=== PATIENT | female | born 1940 | race Caucasian/White ===

== ENCOUNTER 2021-02-25 13:35 | Emergency (ER) | payer OTHER, BC, SELFPAY ==
[~2021-02-25] VITALS: Ht 152.4 cm; Wt 49.9 kg
[2021-02-25 13:35] VITALS: BP_SYST 167
--- NOTE | 2021-02-25 13:35 | NUR ---
BROUGHT IN BY [facility] FROM [facility], PLACED IN BED #6 AND TRIAGED. REPORT GIVEN TO NOA
--- NOTE | 2021-02-25 13:45 | NUR ---
Pt bib [facility] medical transport from [facility] via [facility] for medical clearance to go to [facility] for aggression towards staff. . Pt has no complaints at this time. Pt is calm and cooperative. Pt is AAOX3 and is able to follow commands. Breathing is even and unlabored.
--- NOTE | 2021-02-25 13:48 | NUR ---
Covid and MRSA swab collected and sent to lab.
--- NOTE | 2021-02-25 14:08 | NUR ---
Urine collected and sent to lab.
[2021-02-25 14:27] LABS: BILIRUBIN,URINE NEGATIVE (NEGATIVE); BLOOD, URINE NEGATIVE (NEGATIVE); CLARITY/URINE CLEAR (CLEAR); COLOR,URINE YELLOW (YELLOW); GLUCOSE,URINE NEGATIVE (NEGATIVE); KETONES,URINE NEGATIVE (NEGATIVE); LEUKOCYTE ESTERASE ,URINE 1+ (NEGATIVE); NITRITE, URINE NEGATIVE (NEGATIVE); PROTEIN URINE NEGATIVE (NEGATIVE); UROBILINOGEN,URINE 0.2 (0.2-1.0)
--- NOTE | 2021-02-25 14:27 | NUR ---
ER at bedside examining patient.
--- NOTE | 2021-02-25 14:27 | NUR ---
Lab at bedside.
[2021-02-25 14:49] LABS: BACTERIA,URINE FEW /HPF (None Seen); RBC,URINE 0-3 /HPF (0-3)
[2021-02-25 14:50] LABS: MUCUS,URINE None Seen /LPF (None Seen)
[2021-02-25 14:55] LABS: BARBITURATE, URINE NEGATIVE (NEG <=200); BENZODIAZEPINE, URINE NEGATIVE (NEG <=150); CANNABINOID, URINE NEGATIVE (NEG <=50); COCAINE, URINE NEGATIVE (NEG <=150); METHAMPHETAMINES SCREEN,URINE NEGATIVE (NEG <=500); OPIATE, URINE NEGATIVE (NEG <=100); PHENCYCLIDINE SCREEN,URINE NEGATIVE (NEG <=25); UR TRICYCLIC ANTIDEPRESSANTS NEGATIVE (NEG <=300); URINE AMPHETAMINE NEGATIVE (NEG <=500); URINE METHADONE NEGATIVE (NEG <=200); URINE OXYCODONE SCREEN NEGATIVE (NEG <=100); URINE PROPOXYPHENE SCREEN NEGATIVE (NEG <=300)
[2021-02-25 15:04] LABS: ANION GAP 9 (5-15); CALCIUM 8.9 mg/dL (8.4-11.0); CHLORIDE 101 mmol/L (98-107); CREATININE 0.52 mg/dL (0.55-1.30); GLUCOSE 86 mg/dL (70-99); POTASSIUM 4.1 mmol/L (3.5-5.1); SODIUM SERUM 139 mmol/L (136-145); UREA NITROGEN, BLOOD 14 mg/dL (8-21)
[2021-02-25 15:10] LABS: ACETAMINOPHEN < 1 ug/mL (1-30); ALANINE AMINOTRANSFERASE 17 U/L (12-78); ALBUMIN 3.1 g/dL (3.4-4.8); ALCOHOL, BLOOD < 3 mg/dL (<10); ASPARTATE AMINOTRANSFERASE 16 U/L (10-37); TOTAL BILIRUBIN 0.2 mg/dL (0.0-1.0)
[2021-02-25 15:13] LABS: CHOLESTEROL 195 mg/dL (<200); HDL CHOLESTEROL 75 mg/dL (>55); LDL CHOLESTEROL 107 mg/dL (<100); TRIGLYCERIDES 68 mg/dL (30-150)
[2021-02-25 15:19] LABS: BASOPHILS % (AUTO) 0.7 % (0.0-2.0); EOSINOPHILS # (AUTO) 0.4 K/uL (0.0-0.4); EOSINOPHILS % (AUTO) 5.5 % (0.0-4.0); HEMATOCRIT 37.8 % (36-48); HEMOGLOBIN 12.5 g/dL (12.0-16.0); LYMPHOCYTES # (AUTO) 2.2 K/uL (1.0-5.5); LYMPHOCYTES % (AUTO) 31.7 % (20.5-51.5); MEAN CORPUSCULAR HEMOGLOBIN 30 pg (27-31); MEAN CORPUSCULAR HGB CONC 33 % (32-36); MEAN CORPUSCULAR VOLUME 89 fL (79.0-98.0); MONOCYTES # (AUTO) 0.6 K/uL (0.0-1.0); MONOCYTES % (AUTO) 9.3 % (1.7-9.3); NEUTROPHILS # (AUTO) 3.6 K/uL (1.8-7.7); NEUTROPHILS % (AUTO) 52.8 % (40.0-70.0); PLATELET COUNT (AUTO) 266 K/uL (130-430); RED BLOOD CELL COUNT(AUTO) 4.23 MIL/uL (4.2-6.2); RED CELL DISTRIBUTION WIDTH 15.7 % (9.0-15.0); WHITE BLOOD COUNT (AUTO) 6.8 K/uL (4.8-10.8)
--- NOTE | 2021-02-25 15:42 | NUR ---
Pt stanidng in door way claiming her nephew is here to pick her up and is wanting to leave. Pt given water to drink.
[2021-02-25] MEDS ORDERED: CIPROFLOXACIN HCL 500 MG TABLET PO ONE (15:45)
--- NOTE | 2021-02-25 16:04 | NUR ---
Pt states she can talk to people without other people knowing in her head. Pt still insisting her nephew is outside waiting for her. Pt reoriented and is standing infront of TV watching the news.
[2021-02-25] MEDS ORDERED: LORazepam 1 MG TABLET PO ONE (16:30)
--- NOTE | 2021-02-25 18:54 | NUR ---
Pt standing in door way. No distress noted at this time.
--- NOTE | 2021-02-25 19:26 | NUR ---
Care endorsed to Radha ROGERS.
[2021-02-25] MEDS ORDERED: DIPHENHYDRAMINE HCL 25 MG CAPSULE PO ONE (19:30)
[2021-02-25] MEDS ORDERED: cloNIDine HCL 0.1 MG TABLET PO ONE ×2 (19:45→20:45)
[2021-02-25] MEDS ORDERED: cloNIDine HCL 0.1 MG TABLET ONE (19:46)
--- NOTE | 2021-02-25 22:45 | NUR ---
PATIENT IS SLEEPING IN BED. VSS. WAITING FOR BLS TRANSPORT. WILL CONTINUE TO MONITOR.
--- NOTE | 2021-02-26 00:05 | NUR ---
PATIENT IS SLEEPING IN BED. VSS. WAITING FOR BLS TRANSPORT. WILL CONTINUE TO MONITOR.
[2021-02-26 01:45] VITALS: BP_SYST 97
--- NOTE | 2021-02-26 01:45 | NUR ---
Patient to be transferred to [facility]. Is being transferred due to higher level of care. Receiving facility has accepting physician and available space. ER physician has signed transfer form. Patient or responsible democrat has agreed to transfer and signed form. Patient belongings will be sent with patient. Copy of nursing notes, lab reports, EKG, Physicians Orders and X-rays to be sent with patient. [facility] ambulance service has been called for transfer.
--- NOTE | 2021-02-26 02:10 | NUR ---
CALLED LAMINE STONER TO GIVE REPORT, TECH STATED THE NURSE IS WITH THE PATIENT AND WILL CALL ER BACK WHEN AVAILABLE.
== END 2021-02-26 01:45 ==
LOC: SED 13:35
DX: R45.6 Violent behavior (principal); I10 Essential (primary) hypertension; F31.9 Bipolar disorder, unspecified; Z20.822 Contact with and (suspected) exposure to COVID-19; Z79.899 Other long term (current) drug therapy
CPT/HCPCS: 36415; 80053; 80061; 80307; 81000; 83036; 85025; 87081; 87086; 87426; 93005; 99285; G0480; Q0163; G0481; G0482

== ENCOUNTER 2021-12-14 09:51 | Inpatient (IN) | payer OTHER, BC ==
[~2021-12-14] VITALS: Ht 152.4 cm; Wt 65.8 kg
[2021-12-14 09:54] VITALS: BP_SYST 155
--- NOTE | 2021-12-14 09:58 | NUR ---
Placed in room 5 . Placed on cardiac nurse practitioner, blood pressure machine and pulse oximeter. To gown for exam. Side rails up. Report given to SUE LOBATO.
--- NOTE | 2021-12-14 10:00 | NUR ---
RECEIVED PT FROM SUE COOPER. PT AAOX2-3. SLOW TO SPEAK. PT HAS C/O R SHOULDER PAIN, PT FROM [employer], EMPLOYEES STATE THAT PT IS ALTERED FROM BASE LINE. RESP E/U. SKIN INTACT, NO REPORTS OF PT HAVING SUSTAINED FALL, PT DENIES FALLING. NO S/S OF TRAUMA. SKIN INTACT, NO EDEMA, CAP REFILL < 3. SIDERAILS UP X2.
[2021-12-14] MEDS ORDERED: ARIP5TAB10 PO (10:05)
[2021-12-14] MEDS ORDERED: TYLL650 PO (10:05)
[2021-12-14] MEDS ORDERED: SERT-436 PO (10:05)
[2021-12-14] MEDS ORDERED: LIP20 PO (10:05)
[2021-12-14] MEDS ORDERED: ASPI-1393 PO (10:05)
[2021-12-14] MEDS ORDERED: LISI20TA30 PO (10:05)
[2021-12-14] MEDS ORDERED: SULF1TAB48 PO (10:05)
[2021-12-14] MEDS ORDERED: LEVO100T PO (10:05)
[2021-12-14] MEDS ORDERED: DOCU-144 PO (10:05)
--- NOTE | 2021-12-14 10:05 | NUR ---
Medication reconciliation completed with information provided by [facility]. Any prior medication reconciliation on file was reviewed and corrected.
--- NOTE | 2021-12-14 10:26 | NUR ---
automotive drivability technician at bedside.
--- NOTE | 2021-12-14 10:27 | NUR ---
LABS OBTAINED, CXR COMPLETED.
--- NOTE | 2021-12-14 10:30 | NUR ---
ER at bedside examining patient.
[2021-12-14 10:45] LABS: BASOPHILS % (AUTO) 0.5 % (0.0-2.0); HEMATOCRIT 38.7 % (36-48); LYMPHOCYTES % (AUTO) 10.7 % (20.5-51.5); MEAN CORPUSCULAR HEMOGLOBIN 29 pg (27-31); MEAN CORPUSCULAR HGB CONC 34 % (32-36); MEAN CORPUSCULAR VOLUME 87 fL (79.0-98.0); MONOCYTES # (AUTO) 0.8 K/uL (0.0-1.0); MONOCYTES % (AUTO) 8.2 % (1.7-9.3); NEUTROPHILS # (AUTO) 7.8 K/uL (1.8-7.7); NEUTROPHILS % (AUTO) 80.6 % (40.0-70.0); PLATELET COUNT (AUTO) 278 K/uL (130-430); RED BLOOD CELL COUNT(AUTO) 4.46 MIL/uL (4.2-6.2); RED CELL DISTRIBUTION WIDTH 15.9 % (9.0-15.0); WHITE BLOOD COUNT (AUTO) 9.7 K/uL (4.8-10.8)
--- NOTE | 2021-12-14 11:12 | NUR ---
EKG performed at by Danielle ROGERS. Physician given copy of EKG for review.
--- NOTE | 2021-12-14 11:38 | NUR ---
URINE OBTAINED, IV CATH 22G PLACE TO LFA. SITE WNL.
[2021-12-14 11:39] LABS: BILIRUBIN,URINE NEGATIVE (NEGATIVE); BLOOD, URINE 1+ (NEGATIVE); CLARITY/URINE CLEAR (CLEAR); COLOR,URINE YELLOW (YELLOW); GLUCOSE,URINE NEGATIVE (NEGATIVE); KETONES,URINE 1+ (NEGATIVE); LEUKOCYTE ESTERASE ,URINE 1+ (NEGATIVE); NITRITE, URINE NEGATIVE (NEGATIVE); PROTEIN URINE TRACE (NEGATIVE)
[2021-12-14 12:01] LABS: BACTERIA,URINE MODERATE /HPF (None Seen); MUCUS,URINE 1+ /LPF (None Seen)
[2021-12-14 12:25] LABS: ALANINE AMINOTRANSFERASE 13 U/L (12-78); ANION GAP 12 (5-15); ASPARTATE AMINOTRANSFERASE 21 U/L (10-37); CHLORIDE 99 mmol/L (98-107); CREATININE 0.56 mg/dL (0.55-1.30); GLUCOSE 135 mg/dL (70-99); SODIUM SERUM 134 mmol/L (136-145); TOTAL BILIRUBIN 0.6 mg/dL (0.0-1.0); UREA NITROGEN, BLOOD 18 mg/dL (8-21)
[2021-12-14] MEDS ORDERED: cefTRIAXone 1 GM IVPB PREMIX 50 ML IV ONE (12:45)
--- NOTE | 2021-12-14 13:04 | NUR ---
SECOND LABS OBTAINED.
--- NOTE | 2021-12-14 13:23 | NUR ---
Covid swab done and sent to lab.
--- NOTE | 2021-12-14 14:00 | NUR ---
PAGED DR. GONCALVES TO REPORT SBP RUNNING IN THE 170-180S. AWAITING CALL BACK
[2021-12-14] MEDS: POTASSIUM CHLORIDE 20 MEQ in D5NS 1,000 ML IV SCH (14:01)
--- NOTE | 2021-12-14 14:33 | NUR ---
Admit bed requested Patient will be admitted to care of . Admitted to MS unit. Diagnosis UTI Inpatient (Yes or No) YES Observation (Yes or No) NO Orientation concerns or request close to nursing station (Yes or No) NO Covid Status NEGATIVE On vent or bipap NO Isolation requirements NO Needs a sitter NO From Home (Yes or if No enter name of facility) [facility] Requires Dialysis (Yes or No) NO Med Rec Completed (Yes of No) YES
[2021-12-14] MEDS ORDERED: lisinopriL 20 MG TABLET PO ONE (15:15)
--- NOTE | 2021-12-14 15:17 | NUR ---
REPORTED TO DR. GONCALVES PT'S SBP TRENDING AT 170-180S. RECEIVED ORDER FOR LISINOPRIL 20MG X1 NOW, LISINOPRIL 20 PO BID, HYDRALAZINE 10MG IVP Q 4 HOURS PRN FOR SBP > 160MMHG.
[2021-12-14] MEDS: hydrALAZINE HCL 20 MG/ML VIAL IVP PRN (15:43)
--- NOTE | 2021-12-14 15:43 | NUR ---
HYDRALAZINE 10MG IVP GIVEN OVER 5 MINUTES FOR SBP 168. LISINOPRIL PO X1 GIVEN.
--- NOTE | 2021-12-14 16:10 | NUR ---
Patient will be admitted to care of SUE BENAVIDES. Admitted to MST unit. Will go to [id number]. Belongings list completed. Complete and up to date summary report printed. SBAR report to be given at bedside with opportunity for questions.
--- NOTE | 2021-12-14 16:20 | NUR ---
ADMISSION: PATIENT ARRIVED FROM ER TO ROOM 132C. PATIENT IS AAOX1 TO PERSON. PATIENT NOTED TO BE PARANOID, WITHDRAWN, AND FLAT AFFECT. DOES NOT RESPONSE TO QUESTION WHEN ASKED. PATIENT WILL ONLY RESPONSE IN SIMPLE WORDS LIKE "YES" OR "NO" WITH CLEAR SPEECH. NO PAIN OR DISTRESS NOTED. EXPLAINED POC TO PATIENT. BED IN LOW AND LOCK POSITION. BED ALARM ON. CALL LIGHT WITHIN REACH. STABLE AT THIS TIME.
[2021-12-14 16:40] VITALS: BP_SYST 136
[2021-12-14 17:34] VITALS: BP_SYST 136
--- NOTE | 2021-12-14 18:45 | NUR ---
CLOSING NOTES: PATIENT IS RESTING IN BED QUIETLY. NO DISTRESS OR PAIN NOTED AT THIS TIME. PATIENT REFUSED TO EAT. NOTED TO BE PARANOID, WITHDRAWN, AND FLAT AFFECT. PATIENT DOES NOT LIKE TO TALK OR RESPONSE WHEN BEING ASK. STABLE CONDITION AT THIS TIME.
[2021-12-14 20:00] VITALS: BP_SYST 138
[2021-12-14] MEDS ORDERED: lisinopriL 20 MG TABLET PO SCH (21:00)
[2021-12-14] MEDS: DOCUSATE SODIUM 100 MG CAPSULE PO SCH (21:15)
[2021-12-14] MEDS: lisinopriL 20 MG TABLET PO SCH (21:16)
[2021-12-14] MEDS: ATORVASTATIN 20 MG TABLET PO SCH (21:16)
[2021-12-14] MEDS: ENOXAPARIN SODIUM 40 MG/0.4 ML SYRINGE SUBCUT SCH (21:16)
[2021-12-15 00:53] VITALS: BP_SYST 141
[2021-12-15] MEDS: POTASSIUM CHLORIDE 20 MEQ in D5NS 1,000 ML IV SCH ×2 (02:35→17:38)
--- NOTE | 2021-12-15 07:30 | NUR ---
OPENING NOTES: PATIENT IS RESTING IN BED QUIETLY. A/A/0X1 TO PERSON ONLY W/ EPISODE OF CONFUSION AND FORGETFULNESS. NOTED TO BE STAND OFF, WITHDRAWN, AND FLAT AFFECT. ABLE TO TURN SELF IN BED. EXPLAINED POC TO PATIENT BUT DOES NOT SEEMS TO UNDERSTAND WHAT IS BEING SAID. NO DISTRESS OR PAIN NOTED AT THIS TIME. CALL LIGHT WITH REACH. STABLE CONDITION AT THIS TIME.
[2021-12-15 08:00] VITALS: BP_SYST 149
[2021-12-15] MEDS: ARIPiprazole 5 MG TAB PO SCH (08:26)
[2021-12-15] MEDS: SERTRALINE HCL 50 MG TABLET PO SCH (08:26)
[2021-12-15] MEDS: LEVOTHYROXINE SODIUM 0.1 MG TABLET PO SCH (08:26)
[2021-12-15] MEDS: DOCUSATE SODIUM 100 MG CAPSULE PO SCH ×2 (08:26→20:45)
[2021-12-15] MEDS: ASPIRIN 81 MG TABLET(ECOTRIN) PO SCH (08:26)
[2021-12-15] MEDS: lisinopriL 20 MG TABLET PO SCH ×2 (08:27→20:45)
[2021-12-15] MEDS: cefTRIAXone 1 GM in D5W 50 ML IV SCH (08:29)
[2021-12-15 12:00] VITALS: BP_SYST 143
[2021-12-15 16:25] VITALS: BP_SYST 145
--- NOTE | 2021-12-15 18:32 | NUR ---
CLOSING NOTES: PATIENT IS RESTING IN BED QUIETLY. NO DISTRESS OR PAIN NOTED AT THIS TIME. NOTED TO BE PARANOID, WITHDRAWN, AND FLAT AFFECT. PATIENT DOES NOT LIKE TO TALK OR RESPONSE WHEN BEING ASK. STABLE CONDITION AT THIS TIME.
[2021-12-15 20:00] VITALS: BP_SYST 176
[2021-12-15] MEDS: ATORVASTATIN 20 MG TABLET PO SCH (20:45)
[2021-12-15] MEDS: ENOXAPARIN SODIUM 40 MG/0.4 ML SYRINGE SUBCUT SCH (20:45)
[2021-12-16] VITALS: BP_SYST 156
[2021-12-16] MEDS: POTASSIUM CHLORIDE 20 MEQ in D5NS 1,000 ML IV SCH ×2 (04:55→19:30)
[2021-12-16] MEDS: LEVOTHYROXINE SODIUM 0.1 MG TABLET PO SCH (06:07)
[2021-12-16 08:00] VITALS: BP_SYST 182
[2021-12-16] MEDS: lisinopriL 20 MG TABLET PO SCH ×2 (09:34→21:32)
[2021-12-16] MEDS: SERTRALINE HCL 50 MG TABLET PO SCH (09:34)
[2021-12-16] MEDS: DOCUSATE SODIUM 100 MG CAPSULE PO SCH ×2 (09:34→21:32)
[2021-12-16] MEDS: ARIPiprazole 5 MG TAB PO SCH (09:35)
[2021-12-16] MEDS: ASPIRIN 81 MG TABLET(ECOTRIN) PO SCH (09:35)
[2021-12-16] MEDS: cefTRIAXone 1 GM in D5W 50 ML IV SCH (09:36)
[2021-12-16 12:00] VITALS: BP_SYST 168
[2021-12-16 16:00] VITALS: BP_SYST 168
--- NOTE | 2021-12-16 19:20 | NUR ---
PM OPENING NOTES HAND-OFF REPORT RECEIVED FROM HOWARD ROBERTS FOR CONTINUITY OF CARE. REPORTED "LATE ORDER" FOR DISCHARGE RIGHT AT SHIFT CHANGE. WILL REFER TO TRACTOR CRANE ENGINEER TOMORROW FOR DISCHARGE FOLLOW-THRU..PT RECEIVED AWAKE IN BED. C/O RIGHT SHOULDER PAIN 10/10. PT AFFECT EXTREMELY FLAT. I DID ASK HER IF SHE EVER SMILED. UPON SMILING AT HER SHE SMILED BACK.
[2021-12-16 20:00] VITALS: BP_SYST 171
--- NOTE | 2021-12-16 21:21 | NUR ---
TYLENOL 650 MG FOR R SHOULDER PAIN. SEE E MAR
[2021-12-16] MEDS: ACETAMINOPHEN 650 MG/20.3 ML UDC PO PRN (21:31)
[2021-12-16] MEDS: ATORVASTATIN 20 MG TABLET PO SCH (21:32)
[2021-12-16] MEDS: ENOXAPARIN SODIUM 40 MG/0.4 ML SYRINGE SUBCUT SCH (21:33)
[2021-12-17] VITALS (7 sets, daily range): BP systolic 140–142
--- NOTE | 2021-12-17 04:13 | NUR ---
TYLENOL 650 MG GIVEN FOR R SHOULDER PAIN 09/20. SCANNED AND DID NOT SHOW ON EMAR. SPECIAL NOTE PLACED IN E-MAR AT THIS TIME.
--- NOTE | 2021-12-17 05:15 | NUR ---
PAIN MED EFFECTIVE PAIN 2/10 UPON REASSESSMENT
[2021-12-17] MEDS: LEVOTHYROXINE SODIUM 0.1 MG TABLET PO SCH (07:00)
--- NOTE | 2021-12-17 07:30 | NUR ---
PM CLOSING NOTES HAND-OFF REPORT TO A.M NURSE FOR CONTINUITY OF CARE. PT RESTING IN BED. DOES NOT APPEAR IN DISTRESS. VSS THRU NIGHT. FACILITY SPECIALIST TO FOLLOW-THRU WITH D/C. RELINQUISHING CARE OF PT AT THIS TIME.
[2021-12-17] MEDS: POTASSIUM CHLORIDE 20 MEQ in D5NS 1,000 ML IV SCH ×2 (08:20→19:56)
[2021-12-17] MEDS: DOCUSATE SODIUM 100 MG CAPSULE PO SCH ×2 (08:47→21:00)
[2021-12-17] MEDS: ARIPiprazole 5 MG TAB PO SCH (08:47)
[2021-12-17] MEDS: cefTRIAXone 1 GM in D5W 50 ML IV SCH (08:48)
[2021-12-17] MEDS: lisinopriL 20 MG TABLET PO SCH ×2 (08:48→22:03)
[2021-12-17] MEDS: ASPIRIN 81 MG TABLET(ECOTRIN) PO SCH (08:48)
[2021-12-17] MEDS: SERTRALINE HCL 50 MG TABLET PO SCH (08:55)
[2021-12-17] MEDS: ACETAMINOPHEN 650 MG/20.3 ML UDC PO PRN (11:20)
--- NOTE | 2021-12-17 17:34 | NUR ---
PATIENT DAUGHTER BEAU, DOES NOT WANT THE PATIENT TO BE TRANSPORTED TO [facility]. DAUGHTER IS WORRIED PATIENT CANNOT WALK BY HERSELF WITH THE WALKER AND WILL CAUSE INJURY. PAGED MD. GONCALVES. PENDING RESPONSE.
--- NOTE | 2021-12-17 18:44 | NUR ---
PATIENT COULD NOT WALK BY HERSELF WITH THE WALKER. PATIENT TENDS TO FALL BACK IF NOT HELD BY A PERSOM. SHE REFUSED TO EAT THE DINNER. PATIENT'S DAUGHTER REFUSED TO TAKE THE PATIENT TO THE [facility]IVE LIVING DUE TO POSSIBLE INJURY. PATIENT BACK ON THE BED. IV OUT. STABLE VS. CRISS BARRAZA REGARDING PATIENT'S DAUGHTER REFUSED TO TAKE THE PATIENT BACK TO THE [facility] LIVING. PENDING RESPONSE.
[2021-12-17] MEDS: ATORVASTATIN 20 MG TABLET PO SCH (21:57)
[2021-12-17] MEDS: ENOXAPARIN SODIUM 40 MG/0.4 ML SYRINGE SUBCUT SCH (21:58)
[2021-12-18 00:15] VITALS: BP_SYST 159
[2021-12-18] MEDS: LEVOTHYROXINE SODIUM 0.1 MG TABLET PO SCH (06:27)
--- NOTE | 2021-12-18 07:19 | NUR ---
CLOSING NOTE PT IS LYING ON HER BACK WITH EYES CLOSED. NO SIGNS OF DISTRESS NOTED AT THIS TIME. BED IS IN LOWEST POSITION WITH FALL AND SAFETY PRECAUTIONS IN PLACE. CALL LIGHT IS WITHIN REACH. ALL NEEDS MET AT THIS TIME
[2021-12-18 08:00] VITALS: BP_SYST 186
--- NOTE | 2021-12-18 08:00 | NUR ---
INITIAL NOTES PATIENT IS AOX3. PATIENT IN BED, RESTING, EYES OPEN. NO S/S OF DISTRESS. NO SOB. DENIES ANY PAIN. BREATHING IS EVEN AND NON LABORED, ON ROOM AIR. VITAL SIGNS OBTAINED DOCUMENTED. SAFETY PRECAUTIONS IN PLACE AND CALL LIGHT WITHIN REACH.
[2021-12-18] MEDS: ASPIRIN 81 MG TABLET(ECOTRIN) PO SCH (08:40)
[2021-12-18] MEDS: DOCUSATE SODIUM 100 MG CAPSULE PO SCH ×2 (08:41→20:30)
[2021-12-18] MEDS: ARIPiprazole 5 MG TAB PO SCH (08:41)
[2021-12-18] MEDS: SERTRALINE HCL 50 MG TABLET PO SCH (08:41)
[2021-12-18] MEDS: lisinopriL 20 MG TABLET PO SCH ×2 (08:41→20:31)
[2021-12-18] MEDS: cefTRIAXone 1 GM in D5W 50 ML IV SCH (11:19)
[2021-12-18] MEDS: POTASSIUM CHLORIDE 20 MEQ in D5NS 1,000 ML IV SCH ×2 (11:20→23:45)
[2021-12-18 12:00] VITALS: BP_SYST 169
--- NOTE | 2021-12-18 12:00 | NUR ---
NOTES ASSISTED PATIENT TO RESTROOM, TOLERATED WALKING TO RESTROOM WELL, WITH WALKER. WHEN SHE WAS TO WALK BACK TO BED, PATIENT GAIT WAS GETTING UNSTEADY, WEAK, AND LEANING MORE TO RIGHT SIDE. PATIENT RETURNED TO BED SAFELY, NO S/S OF DISTRESS NOTED. PATIENT IS NOW EATING LUNCH. PATIENT AWARE TO CALL FOR ASSISTANCE WHEN NEEDED. SAFETY PRECAUTIONS IN PLACE AND CALL LIGHT WITHIN REACH.
[2021-12-18] MEDS: hydrALAZINE HCL 20 MG/ML VIAL IVP PRN ×2 (12:56→23:46)
[2021-12-18 16:00] VITALS: BP_SYST 141
--- NOTE | 2021-12-18 16:00 | NUR ---
NOTES PATIENT RESTING IN BED, EYES CLOSED. NO FACIAL GRIMACE NOTED. NO S/S OF DISTRESS. BREATHING IS EVEN AND NONLABORED. SAFETY PRECAUTIONS IN PLACE AND CALL LIGHT WITHIN REACH.
--- NOTE | 2021-12-18 18:35 | NUR ---
CLOSING NOTES. PATIENT IN BED, HOB ELEVATED EATING DINNER. NO S/S OF DISTRESS NOTED. DENIES PAIN. NO SOB. BREATHING IS EVEN AND NONLABORED. PATIENT AWARE TO CALL FOR ASSISTANCE. ALL NEEDS MET. SAFETY PRECAUTIONS IN PLACE AND CALL LIGHT WITHIN REACH. WILL ENDORSE CARE TO INCOMING NURSE.
[2021-12-18 19:00] VITALS: BP_SYST 168
--- NOTE | 2021-12-18 19:15 | NUR ---
change of shift.pt.presents quiescent affect;calm,resting.pt.presents iv access intact;patent location;lt.forearm.pt.presents loc;confused. i have oriented the pt.to the date,time,location.pt.presents bedrest activity status.general status stable.respiratory status stable;unlabored@room air.call light/telephone w/in access of the pt.
[2021-12-18 20:00] VITALS: BP_SYST 168
--- NOTE | 2021-12-18 20:00 | NUR ---
pt.assessed.v/s assessed values note b/p elevated.to review the e-mar med list.r/e: b/p medications.no c/o pain,nausea. iv access intact;patent.pt.assessed for cleanliness.pt.repositioned.pt.apprised that snacks/beverages are available w/in the shift.no requests posited@this hour.call light/telephone fidelia taylor.
[2021-12-18] MEDS: ATORVASTATIN 20 MG TABLET PO SCH (20:30)
[2021-12-18] MEDS: ENOXAPARIN SODIUM 40 MG/0.4 ML SYRINGE SUBCUT SCH (20:31)
--- NOTE | 2021-12-18 21:00 | NUR ---
2100p medications administered.pt.capable to ingest the po medications w/out difficulty.no c/o pain,nausea.call light/ telephone placed w/in access of the pt.
--- NOTE | 2021-12-18 22:20 | NUR ---
pt.assessed.pt.requested assistance to the restroom.pt.assisted w walker.pt.presented compromised gait.to continue w bedpan.pt.presented fall risk;high.no c/o pain,nausea.no requests posited@this hour.pt.repositioned.call light/telephone placed w/in access of the pt.
[2021-12-19] VITALS (7 sets, daily range): BP systolic 132–165
--- NOTE | 2021-12-19 | NUR ---
pt.assessed.v/s assessed values note b/p presents elevated.status.vasotec:10mg ivp administered.per prn protocol. no c/o pain.nausea.no requests posited@this hour.pt.assessed for cleanliness.pt.repositioned.call light/telephone placed w/in access of the pt.
--- NOTE | 2021-12-19 02:00 | NUR ---
pt.assessed.pt.presents quiescent affect;calm,somnolent.per flacc pain mgx pt.absent facial grimaces/body posturing.pt. assessed for cleanliness. pt.repositioned.iv access intact;patent iv fluids infusing.call light/telephone placed w/in access of the pt.
--- NOTE | 2021-12-19 04:00 | NUR ---
pt.assessed.pt.presents quiescent affect;calm,somnolent.per flacc pain mgx pt.absent facial grimaces/body posturing. pt.assessed for cleanliness.pt.repositioned.call light/telephone placed w/in access of the pt.
[2021-12-19] MEDS: LEVOTHYROXINE SODIUM 0.1 MG TABLET PO SCH (05:31)
[2021-12-19] MEDS: hydrALAZINE HCL 20 MG/ML VIAL IVP PRN (05:38)
--- NOTE | 2021-12-19 06:12 | NUR ---
pt.assessed.v/s assessed value note b/p status elevated.i have administered hydralizine:10mg ivp.to assess the efficacy of the medication per protocol.no c/o pain,nausea.iv access intact;patent.pt.assessed for cleanliness.pt.repositioned.call light/telephone placed w/in access of the pt. Addendum: 12/19/21 at 0620 by George Hahn RN i have administered synthroid po;0700a dose@this hour.
[2021-12-19 07:16] LABS: BASOPHILS % (AUTO) 0.5 % (0.0-2.0); EOSINOPHILS # (AUTO) 0.2 K/uL (0.0-0.4); EOSINOPHILS % (AUTO) 2.6 % (0.0-4.0); HEMATOCRIT 34.9 % (36-48); HEMOGLOBIN 11.8 g/dL (12.0-16.0); LYMPHOCYTES # (AUTO) 1.6 K/uL (1.0-5.5); LYMPHOCYTES % (AUTO) 20.7 % (20.5-51.5); MEAN CORPUSCULAR HEMOGLOBIN 29 pg (27-31); MEAN CORPUSCULAR HGB CONC 34 % (32-36); MEAN CORPUSCULAR VOLUME 86 fL (79.0-98.0); MONOCYTES # (AUTO) 0.7 K/uL (0.0-1.0); MONOCYTES % (AUTO) 8.5 % (1.7-9.3); NEUTROPHILS # (AUTO) 5.3 K/uL (1.8-7.7); NEUTROPHILS % (AUTO) 67.7 % (40.0-70.0); PLATELET COUNT (AUTO) 349 K/uL (130-430); RED BLOOD CELL COUNT(AUTO) 4.05 MIL/uL (4.2-6.2); RED CELL DISTRIBUTION WIDTH 15.1 % (9.0-15.0); WHITE BLOOD COUNT (AUTO) 7.8 K/uL (4.8-10.8)
--- NOTE | 2021-12-19 07:53 | NUR ---
Report received from mercury cell cleaner RN for continuity of care. Patient stable condition. Resting in bed.
--- NOTE | 2021-12-19 08:00 | NUR ---
INITIAL NOTES PATIENT IS AOX3. CONFUSED. PATIENT IS ON ROOM AIR, BREATHING IS EVEN AND NONLABORED. NO S.S OF DISTRESS NOTED. NO SOB. DENIES PAIN. PATIENT HAS BEEN CLEANED AND REPOSITIONED. HOB ELEVATED AND IS EATING DINNER. SAFETY PRECAUTIONS IN PLACE AND CALL LIGHT WITHIN REACH. BED ALARM ON.
[2021-12-19 08:36] LABS: ANION GAP 7 (5-15); CALCIUM 8.2 mg/dL (8.4-11.0); CHLORIDE 105 mmol/L (98-107); CREATININE 0.48 mg/dL (0.55-1.30); GLUCOSE 115 mg/dL (70-99); POTASSIUM 3.1 mmol/L (3.5-5.1); SODIUM SERUM 139 mmol/L (136-145); UREA NITROGEN, BLOOD 10 mg/dL (8-21)
[2021-12-19] MEDS: ARIPiprazole 5 MG TAB PO SCH (08:44)
[2021-12-19] MEDS: lisinopriL 20 MG TABLET PO SCH (08:44)
[2021-12-19] MEDS: SERTRALINE HCL 50 MG TABLET PO SCH (08:44)
[2021-12-19] MEDS: DOCUSATE SODIUM 100 MG CAPSULE PO SCH ×2 (08:44→21:00)
[2021-12-19] MEDS: ASPIRIN 81 MG TABLET(ECOTRIN) PO SCH (08:44)
[2021-12-19] MEDS: cefTRIAXone 1 GM in D5W 50 ML IV SCH (10:25)
--- NOTE | 2021-12-19 11:15 | NUR ---
NOTES CALLED AND SPOKE TO DR. GONCALVES. POTASSIUM IS 3.1. ORDERS RECEIVED.
--- NOTE | 2021-12-19 11:17 | NUR ---
DISCHARGE PLANNING Called & spoke with elizabeth Armando,ph [phone], pt from [facility]. Pt baseline can ambulate on own using fww. Wants to come evaluate pt later today after work in before gives final consent as to final discharge plan. Has spoken with a Dr Rios, who has cared for pt in past & would like snf referral sent to #1 [facility] under Dr Rios & to [facility] choice. Is also going to call and discuss with pt's PCP Dr Tse. Faxed referral to the 2 SNF's. Addendum: 12/19/21 at 1545 by Jeannette Carrero RN Spoke with Diya At [facility], Diya ph [phone] facility ph [phone], pt is accepted. Called & spoke with Celi at [facility], ph [phone], pt is accepted, informed plan for tomorrow. Called & lt msg with elizabeth Arredondo informing that both SNFs accepted pt & plan for discharge tomorrow if stable. Addendum: 08/09/22 at 1010 by Jeannette Carrero RN Correct ph for elizabeth Arredondo is [phone], the ph above is wrong.
--- NOTE | 2021-12-19 11:28 | NUR ---
CONSULTATION PAGED/CALLED Reason for Consultation: []confusion Person Who was Notified: []Bri Consulting Physician: [] Dr. Ирина Finley Hoop Puncher Specialty: []Neuro Ordering Physician: []Dr. Wade
[2021-12-19] MEDS ORDERED: POTASSIUM CHLORIDE 20 MEQ/PKT PACKET PO ONE (11:30)
--- NOTE | 2021-12-19 12:32 | NUR ---
Attempted PT visit, pt refused PT, states she exercises and walks on her own, and has her own walker at home. Pt educated on requiring assistance during OOB tasks, safety and fall risk, as pt was trying to get out of bed on her own. Able to convince pt to stay in bed at this time. Nursing made aware.
[2021-12-19] MEDS: POTASSIUM CHLORIDE 20 MEQ in D5NS 1,000 ML IV SCH (13:42)
[2021-12-19] MEDS ORDERED: POTASSIUM CHLORIDE 20 MEQ TAB.PRT.SR PO ONE (14:00)
--- NOTE | 2021-12-19 14:00 | NUR ---
NOTES PATIENT IS CONFUSED. REFUSED TO WALK WITH PHYSICAL THERAPY. PATIENT ADAMANT OF GOING HOME, PATIENT TRYING TO GET OUT OF BED. EDUCATED THE PATIENT ON SAFETY AND FALL PRECAUTIONS. PATIENT HAS ALSO PULLED OUT 2 IVS. MD IS AWARE, ORDERS RECEIVED. SAFETY PRECAUTIONS IN PLACE, BED ALARM ON, AT LOWEST POSITION, 3 SIDE RAILS UP. CALL LIGHT WITHIN REACH. EDUCATED PATIENT TO CALL FOR ASSISTANCE.
[2021-12-19] MEDS ORDERED: LOSARTAN POTASSIUM 50 MG TABLET (COZAAR) PO ONE (14:30)
--- NOTE | 2021-12-19 16:00 | NUR ---
NOTES PATIENT RESTING, EYES CLOSED. NO DISTRESS NOTED. BREATHING IS EVEN AND NONLABORED. SAFETY PRECAUTIONS IN PLACE AND CALL LIGHT WITHIN REACH. BED ALARM ON.
[2021-12-19] MEDS: PRIMIDONE 50 MG TABLET PO SCH ×2 (16:14→21:00)
--- NOTE | 2021-12-19 18:45 | NUR ---
CLOSING NOTES PATIENT HAS BEEN CLEANED AND REPOSITIONED. HOB ELEVATED AND IS EATING DINNER. NO S/S OF DISTRESS NOTED. NO SOB. ON ROOM AIR, BREATHING EVEN AND NONLABORED. PATIENT HAS NO IV ACCESS, MULTIPLE ATTEMPTS MADE THROUGHOUT SHIFT. WILL ENDORSE TO INCOMING NURSE. ALL NEEDS MET. DENIES PAIN. SAFETY PRECAUTIONS IN PLACE AND CALL LIGHT WITHIN REACH. BED ALARM ON AND AT LOWEST POSITION. WILL ENDORSE CONTINUE OF CARE TO INCOMING NURSE.
--- NOTE | 2021-12-19 19:14 | NUR ---
Nutritional Assessment Nutritional Screening Moderate Risk Screening Admitting Diagnosis Urinary Tract Infection Reviewed Pertinent Medical/Surgical Hx Medical Record Medical History Comment: Per EMR: 81yF with pmh HTN, hypothyroid, bipolar disorder, and depression who presented from SNF with c/o generalized weakness and confusion. Per EMR, pt dx with UTI. Subjective Information RD reviewed chart and met with patient bedside. Pt refused to participate in nutritional assessment at time of visit. Per EMR, LBM 8/7 x 1. PO intake on 12/16 noted to be 25% average x 3 meals. PO intake has improved to 58% x 3 meals. Current Diet Order/Nutrition Support: Mechanical Soft x 5 days Patient/Significant Other Able To Verbalize Education Provided Not Indicated Pertinent Medications zoloft, ecotrin, abilify, synthoid, lovenox, colace, lipitor, apresoline Pertinent Labs RBC 4L, h/h 11.8/39.9L, K 3.1L, Cre 0.48L, glu 115H, Ca 8.2L Height (Feet) 5 feet Height (Inches) 0.00 inches Weight (Pounds) 145 pounds Weight (Calculated Kilograms) 65.821783 kilograms Patient Weight 65.771 kg Body Mass Index 28.31 kg/m2 %IBW 145 [place]/Adjusted Body Weight 100lb/ 45.45kg Recent Weight Change Unable to verify Weight Status Overweight Gastrointestinal Symptoms None Last BM Dec 18, 2021 Food Allergies Unable to verify Cultural/Ethnic/Mormonism Belief Unable to verify Usual Diet At Home Unable to verify Skin Integrity Comment: Byron 18: No wounds noted per EMR Current % PO Fair (50-74%) Estimated Energy Expenditure (kcals/day) 7947-7274 (20-25 kcal/kg d/t overweight BMI) Estimated Protein Required (g/day) 65-80 (1-1.2 g/kg d/t advanced age) Estimated Fluid Required (l/day) 1.3-1.6 (1mL/kcal) or per MD Problem/Etiology/Signs/Symptoms Inadequate oral intake r/t weakness, confusion a/e/b <75% average meal intake (Initial) Expected Outcomes/Goals PO intake >85% estimated nutrient needs, BM q 1-3 days, weight stable within 1-2lbs, nutrition-related labs WNL. Dietitian Recommendations * Continue Mechanical Soft diet per MD * Encourage good PO intake * Ensure Enlive daily * Rec initiate MVI Follow Up Mod Risk: F/U in 3-5 days Follow Up By Dec 24, 2021 Alert Not Indicated Addendum: 12/19/21 at [address] Amended: Links added.
--- NOTE | 2021-12-19 19:18 | NUR ---
Dietitian Recommendations * Continue Mechanical Soft diet per MD * Encourage good PO intake * Ensure Enlive daily * Rec initiate MVI Please refer to Nutritional Assessment for details, thanks! CC, MPH, RDN
--- NOTE | 2021-12-19 20:08 | NUR ---
Report given to steward/stewardess night RN for continuity of care. Patient stable condition. No distress noted.
[2021-12-19] MEDS: LOSARTAN POTASSIUM 50 MG TABLET (COZAAR) PO SCH (21:00)
[2021-12-19] MEDS: ATORVASTATIN 20 MG TABLET PO SCH (21:00)
[2021-12-19] MEDS: ENOXAPARIN SODIUM 40 MG/0.4 ML SYRINGE SUBCUT SCH (22:37)
[2021-12-20] MEDS: LEVOTHYROXINE SODIUM 0.1 MG TABLET PO SCH (07:42)
[2021-12-20 08:00] VITALS: BP_SYST 161
[2021-12-20] MEDS: SERTRALINE HCL 50 MG TABLET PO SCH (09:33)
[2021-12-20] MEDS: ARIPiprazole 5 MG TAB PO SCH (09:33)
[2021-12-20] MEDS: DOCUSATE SODIUM 100 MG CAPSULE PO SCH (09:33)
[2021-12-20] MEDS: ASPIRIN 81 MG TABLET(ECOTRIN) PO SCH (09:34)
[2021-12-20] MEDS: LOSARTAN POTASSIUM 50 MG TABLET (COZAAR) PO SCH (09:34)
[2021-12-20] MEDS: PRIMIDONE 50 MG TABLET PO SCH ×2 (09:49→15:00)
--- NOTE | 2021-12-20 10:00 | NUR ---
Miss Armando has been assessed as indicated. She continues to have a flat affect. She has no s/s of distress or discomfort. She is incont of bowel and bladder. She has a very flat affect. She does attempt to follow commands and answers questions. She is presently resting quietly. She was assisted with her breakfast.
[2021-12-20 12:07] VITALS: BP_SYST 135
--- NOTE | 2021-12-20 13:08 | NUR ---
DISCHARGE PLANNING This am called & spoke with elizabeth Armando, ph [phone], states preference is for [facility]. States prefer under Dr Rios but if he cannot then ok with Dr Wade. States if does not answer ph to leave msg with time of pick up attendant. Called & spoke with Dr Wade, gave ph order for dc to SNF. Called & spoke with Celi at [facility] & informed, ph [phone], states pt accepted going to room 14B. Called & set up transport with [facility] for 6pm pick up attendant, ph [phone]. Called & lt msg with elizabeth Arredondo with transfer information. Updated charge nurse. Transfer packet to nsg station.
--- NOTE | 2021-12-20 16:02 | NUR ---
CM: Received call from PATI/Maria Elena: changed her mind /asking not to send pt to [facility] but to [facility] instead. I s/w Diya At [facility], ph [phone]: confirmed pt is accepted under dr. Wade, and had bed # 13A available today. The POFransisco made aware. Dr Wade made aware. Informed Arturo/ [facility] ambulance /changed the destination drop off to [facility] with same fish bait picker time. Cancelled bed at [facility] with Leatha.SUE Turcios aware. .
[2021-12-20 16:13] VITALS: BP_SYST 154
--- NOTE | 2021-12-20 17:45 | NUR ---
Miss Armando is being transferred to [facility]. Her family is aware per case management. She has been prepared to depart by staff. She is compliant with the plan to DC at this time. Report was given to Nikhil at [facility] [phone] she will go to room 13A. She has no IV access to remove. She has no heart monitor to remove. She was transported via [facility] unit 12 Catracho was the otr company driver. DC info accompanied her on the transfer
--- NOTE | 2021-12-21 07:44 | NUR ---
PHYSICAL THERAPY CO-SIGN The Physical Therapy Progress Notes documented by Senior Courtroom Clerk have been reviewed. Reviewed/Co-Signed by: Kevyn Miranda Documentation Done by: YASSINE OSBORNE PTA Addendum: 12/21/21 at 0745 by Kevyn Miranda PT Amended: Links added.
--- NOTE | 2021-12-21 08:26 | NUR ---
Dispo code 03
== END 2021-12-20 17:45 | DRG 689 ==
LOC: SED 09:51 → SMU 12:51
PROVIDERS: ADMIT Family Medicine; ATTEND Family Medicine
DX: N39.0 Urinary tract infection, site not specified (principal); G93.41 Metabolic encephalopathy; E44.1 Mild protein-calorie malnutrition; I10 Essential (primary) hypertension; E03.9 Hypothyroidism, unspecified; F31.9 Bipolar disorder, unspecified; Z20.822 Contact with and (suspected) exposure to COVID-19; F03.90 Unspecified dementia, unspecified severity, without behavioral disturbance, psychotic disturbance, mood disturbance, and anxiety
CPT/HCPCS: 36415; 71045; 73030; 73060-TC; 80048; 80053; 81000; 83605; 83880; 84484; 85025; 87040; 87086; 93005; 96365; 96375; 97116-GP; 97530-GP; 99285; J0360; J0696; J1650; J3480; J7042; J7060

== ENCOUNTER 2022-09-16 20:53 | Emergency (ER) | payer OTHER, BC ==
[~2022-09-16] VITALS: Ht 152.4 cm; Wt 49.9 kg
[~2022-09-16 20:53] MED LIST: ARIP5TAB10 PO; ASPI-1393 PO; DOCU-144 PO; LEVO100T PO; LIP20 PO; LISI20TA30 PO; SERT-436 PO; TYLL650 PO
[2022-09-16 21:00] VITALS: BP_SYST 150
[2022-09-16] MEDS ORDERED: DIPHTH,PERTUSS(ACELL),TET VAC 0.5 ML VIAL (Tdap) I.M. ONE (21:15)
[2022-09-16] MEDS ORDERED: LIDOCAINE 1% 10 MG/ML, 20 ML MDV INJ ONE (21:15)
[2022-09-17 02:20] VITALS: BP_SYST 134
== END 2022-09-17 02:30 | disposition home or self-care (01) ==
LOC: SED 20:53
DX: S01.01XA Laceration without foreign body of scalp, initial encounter (principal); Z76.0 Encounter for issue of repeat prescription; Z79.899 Other long term (current) drug therapy; Z79.82 Long term (current) use of aspirin; W19.XXXA Unspecified fall, initial encounter; Y93.89 Activity, other specified; Y92.89 Other specified places as the place of occurrence of the external cause; Y99.8 Other external cause status
CPT/HCPCS: 99285; 70450; 72125; 76376; 90715; 90471; 12001; J2001

== ENCOUNTER 2022-10-16 17:30 | Emergency (ER) | payer OTHER, BC ==
[~2022-10-16] VITALS: Ht 152.4 cm; Wt 54.4 kg
[2022-10-16 17:53] VITALS: BP_SYST 160
--- NOTE | 2022-10-16 17:59 | NUR ---
PT TO BED 05 FROM [facility] ([facility] ASSIGNED TO NURSE DAVIS
--- NOTE | 2022-10-16 18:01 | NUR ---
[facility] [id number] BLS PT PLACED IN BED 5
--- NOTE | 2022-10-16 18:11 | NUR ---
BIBA FROM SNF S/P FOUND ON FLOOR BY STAFF. NO OBVIOUS INJURIES. NO NECK OR BACK PAIN. PER EMS UNABLE TO AMBULATE. NO FACIAL DROOP. NO SLURRED SPEECH. -ARM DRIFT. AAOX2. PER BASELINE. RESP EVEN AND NONLABORED. VSS. SR UP X2. PENDING EVAL
[2022-10-16] MEDS ORDERED: NACL 0.9% 1,000 ML IV ONE (18:15)
[2022-10-16] MEDS ORDERED: LOSA50TA3 PO (18:17)
--- NOTE | 2022-10-16 18:21 | NUR ---
XRAY DONE. LABS @ BEDSIDE
[2022-10-16 18:38] LABS: BASOPHILS # (AUTO) 0.1 K/uL (0.0-0.2); EOSINOPHILS # (AUTO) 0.1 K/uL (0.0-0.4); EOSINOPHILS % (AUTO) 2.2 % (0.0-4.0); HEMATOCRIT 35.6 % (36-48); HEMOGLOBIN 11.8 g/dL (12.0-16.0); LYMPHOCYTES # (AUTO) 2.1 K/uL (1.0-5.5); LYMPHOCYTES % (AUTO) 32.2 % (20.5-51.5); MEAN CORPUSCULAR HEMOGLOBIN 30 pg (27-31); MEAN CORPUSCULAR HGB CONC 33 % (32-36); MEAN CORPUSCULAR VOLUME 91 fL (79.0-98.0); MONOCYTES # (AUTO) 0.5 K/uL (0.0-1.0); MONOCYTES % (AUTO) 7.5 % (1.7-9.3); NEUTROPHILS # (AUTO) 3.8 K/uL (1.8-7.7); NEUTROPHILS % (AUTO) 57.1 % (40.0-70.0); PLATELET COUNT (AUTO) 206 K/uL (130-430); RED BLOOD CELL COUNT(AUTO) 3.91 MIL/uL (4.2-6.2); RED CELL DISTRIBUTION WIDTH 15.1 % (9.0-15.0); WHITE BLOOD COUNT (AUTO) 6.6 K/uL (4.8-10.8)
[2022-10-16 18:58] LABS: ALANINE AMINOTRANSFERASE 12 U/L (12-78); ANION GAP 5 (5-15); ASPARTATE AMINOTRANSFERASE 15 U/L (10-37); CALCIUM 8.6 mg/dL (8.4-11.0); CHLORIDE 102 mmol/L (98-107); CREATININE 0.48 mg/dL (0.55-1.30); GLUCOSE 96 mg/dL (70-99); TOTAL BILIRUBIN 0.3 mg/dL (0.0-1.0); UREA NITROGEN, BLOOD 22 mg/dL (8-21)
--- NOTE | 2022-10-16 19:13 | NUR ---
Report received from SUE Forbes. Will continue with POC, mornitoring VS & clinical status.
--- NOTE | 2022-10-16 19:13 | NUR ---
report given to rubens tomlin
--- NOTE | 2022-10-16 20:00 | NUR ---
No change from previous assessment. Will continue to monitor VS & clinical status.
--- NOTE | 2022-10-16 21:00 | NUR ---
# 16 FR Straight catheter with use of sterile technique. Immediate return of 30 cc clear yellow urine noted. Urine sample collected and sent to lab. Pt tolerated procedure well
[2022-10-16 21:07] LABS: BILIRUBIN,URINE NEGATIVE (NEGATIVE); CLARITY/URINE CLEAR (CLEAR); COLOR,URINE YELLOW (YELLOW); GLUCOSE,URINE NEGATIVE (NEGATIVE); KETONES,URINE NEGATIVE (NEGATIVE); LEUKOCYTE ESTERASE ,URINE NEGATIVE (NEGATIVE); NITRITE, URINE NEGATIVE (NEGATIVE); PROTEIN URINE NEGATIVE (NEGATIVE); UROBILINOGEN,URINE 0.2 (0.2-1.0)
[2022-10-16 21:08] LABS: BLOOD, URINE TRACE (NEGATIVE)
[2022-10-16 21:14] LABS: BACTERIA,URINE FEW /HPF (None Seen); MUCUS,URINE None Seen /LPF (None Seen); RBC,URINE NONE SEEN /HPF (0-3); WBC,URINE 0-3 /HPF (0-3)
--- NOTE | 2022-10-16 21:38 | NUR ---
[facility] [address] [facility] for [facility] and ETA for pickup is [id number].
--- NOTE | 2022-10-16 21:41 | NUR ---
explained to patient on medicating with Lasix 40 mg PO & Morphine 4 mg IM. Patient declines medication until Dr. Kiran come to speak with patient. Patient asked what she would like to speak with Dr. Kiran regarding the Lasix & Morphine. Patient adament she will not take any medications until she speak to Dr. Kiran but refuse to speak with senior copywriter the reason she want to speak with MD. Addendum: 10/16/22 at [id number] Kiran notified patient want to speak with him regarding Lasix & Morphine, but refuse to speak with senior copywriter.
--- NOTE | 2022-10-16 22:00 | NUR ---
No change from previous assessment. Will continue to monitor VS & clinical status.
--- NOTE | 2022-10-16 23:10 | NUR ---
EMS BLS at bedside. Report given to EMT. Patient transferred to EMS [facility]. Patient OTD in stable condition to SNF.
[2022-10-17 02:40] VITALS: BP_SYST 157
== END 2022-10-16 23:10 | disposition home or self-care (01) ==
LOC: SED 17:30
DX: Z04.3 Encounter for examination and observation following other accident (principal); R53.1 Weakness; I10 Essential (primary) hypertension; S09.90XA Unspecified injury of head, initial encounter; Z79.899 Other long term (current) drug therapy
CPT/HCPCS: 99285; 70450; 96360; 71045; 80053; 81000; 85025; 87040; 36415; 93005; 72125; 72192; 83605; 76376; J7030

== ENCOUNTER 2023-03-13 10:50 | Inpatient (IN) | payer OTHER, BC ==
[~2023-03-13] VITALS: Ht 157.5 cm; Wt 65.3 kg
[~2023-03-13 10:50] MED LIST changes: +LOSA-413 PO
[2023-03-13 10:59] VITALS: BP_SYST 139; PULSE 81; RESP 18; TEMP 100.2; TEMP 98.1; O2SAT 96
[2023-03-13 11:40] LABS: BASOPHILS # (AUTO) 0.1 K/uL (0.0-0.2); BASOPHILS % (AUTO) 0.4 % (0.0-2.0); EOSINOPHILS % (AUTO) 0.3 % (0.0-4.0); HEMOGLOBIN 11.9 g/dL (12.0-16.0); LYMPHOCYTES # (AUTO) 1.1 K/uL (1.0-5.5); LYMPHOCYTES % (AUTO) 7.9 % (20.5-51.5); MEAN CORPUSCULAR HEMOGLOBIN 29 pg (27-31); MEAN CORPUSCULAR HGB CONC 32 % (32-36); MEAN CORPUSCULAR VOLUME 89 fL (79.0-98.0); MONOCYTES # (AUTO) 0.8 K/uL (0.0-1.0); MONOCYTES % (AUTO) 5.9 % (1.7-9.3); NEUTROPHILS # (AUTO) 11.6 K/uL (1.8-7.7); NEUTROPHILS % (AUTO) 85.5 % (40.0-70.0); PLATELET COUNT (AUTO) 417 K/uL (130-430); RED BLOOD CELL COUNT(AUTO) 4.17 MIL/uL (4.2-6.2); RED CELL DISTRIBUTION WIDTH 15.7 % (9.0-15.0); WHITE BLOOD COUNT (AUTO) 13.6 K/uL (4.8-10.8)
[2023-03-13 11:57] LABS: BILIRUBIN,URINE NEGATIVE (NEGATIVE); BLOOD, URINE NEGATIVE (NEGATIVE); CLARITY/URINE CLEAR (CLEAR); COLOR,URINE YELLOW (YELLOW); GLUCOSE,URINE TRACE (NEGATIVE); KETONES,URINE TRACE (NEGATIVE); LEUKOCYTE ESTERASE ,URINE NEGATIVE (NEGATIVE); NITRITE, URINE NEGATIVE (NEGATIVE); PROTEIN URINE TRACE (NEGATIVE); UROBILINOGEN,URINE 0.2 (0.2-1.0)
[2023-03-13 11:58] LABS: ANION GAP 8 (5-15); CALCIUM 9.2 mg/dL (8.4-11.0); CARBON DIOXIDE 27 mmol/L (23-29); CHLORIDE 100 mmol/L (98-107); CREATININE 0.77 mg/dL (0.55-1.30); GLUCOSE 181 mg/dL (74-106); POTASSIUM 3.2 mmol/L (3.5-5.1); SODIUM SERUM 135 mmol/L (136-145); UREA NITROGEN, BLOOD 25 mg/dL (8-21)
[2023-03-13 12:00] LABS: INR 1.1 (0.8-1.2)
[2023-03-13 12:05] LABS: ALANINE AMINOTRANSFERASE 12 U/L (12-78); ALBUMIN 2.7 g/dL (3.4-4.8); ASPARTATE AMINOTRANSFERASE 8 U/L (10-37); TOTAL BILIRUBIN 0.4 mg/dL (0.0-1.0); TOTAL PROTEIN, SERUM 7.3 g/dL (6.4-8.3)
[2023-03-13 12:13] LABS: BACTERIA,URINE RARE /HPF (None Seen); HYALINE CASTS, URINE 0-1 /LPF (None Seen); WBC,URINE 0-3 /HPF (0-3)
[2023-03-13 12:14] LABS: MUCUS,URINE 2+ /LPF (None Seen)
[2023-03-13] MEDS ORDERED: cefTRIAXone 1 GM IVPB PREMIX 50 ML IV ONE (12:45)
[2023-03-13] MEDS ORDERED: NACL 0.9% 1,000 ML IV ONE (12:45)
[2023-03-13 12:52] LABS: INFLUENZA TYPE A Negative (NEGATIVE); INFLUENZA TYPE B NEGATIVE (NEGATIVE)
[2023-03-13] MEDS ORDERED: BISA10SU61 RC (13:47)
[2023-03-13] MEDS ORDERED: SENN8.6T19 PO (13:47)
[2023-03-13] MEDS ORDERED: NA P133E41 RC (13:47)
[2023-03-13] MEDS ORDERED: CYAN100082 PO (13:47)
[2023-03-13] MEDS ORDERED: ACET325T39 PO (13:47)
[2023-03-13] MEDS ORDERED: D-MA500C PO (13:47)
[2023-03-13] MEDS ORDERED: METH1TAB PO (13:47)
[2023-03-13] MEDS ORDERED: FERR325T30 PO (13:47)
[2023-03-13] MEDS ORDERED: OMEP20TA20 PO (13:47)
[2023-03-13] MEDS ORDERED: CHOL100034 PO (13:47)
[2023-03-13] MEDS ORDERED: AMLO2.5T50 PO (13:47)
[2023-03-13] MEDS ORDERED: CRAN200C PO (13:47)
[2023-03-13] MEDS ORDERED: AMIN30LI2 PO (13:47)
[2023-03-13] MEDS ORDERED: POLY17PO4 PO (13:47)
[2023-03-13] MEDS ORDERED: MOM PO (13:48)
[2023-03-13] MEDS ORDERED: ONDA4TAB11 PO (13:48)
[2023-03-13] MEDS ORDERED: [UNRECOGNIZED DRUG - CODE] (13:48)
[2023-03-13] MEDS ORDERED: MILK OF MAGNESIA 30 ML UDC PO PRN (14:00)
[2023-03-13] MEDS ORDERED: ONDANSETRON 4 MG ODT TAB PO PRN (14:00)
[2023-03-13] MEDS ORDERED: OMEPRAZOLE PO SCH (14:00)
[2023-03-13] MEDS ORDERED: ACETAMINOPHEN 325 MG TABLET PO PRN (14:00)
[2023-03-13] MEDS ORDERED: POTASSIUM CHLORIDE 40 MEQ, LIDOCAINE JECT 2% PF 100 MG 50 MG in NS 250 ML IV ONE (14:00)
[2023-03-13] MEDS ORDERED: AZITHROMYCIN 500 MG/VIAL (ZITHROMAX) IV ONE (16:31)
[2023-03-13] MEDS: AZITHROMYCIN 500 MG in NS 250 ML IV SCH (16:38)
[2023-03-13 17:07] VITALS: BP_SYST 155; PULSE 77; RESP 18; TEMP 98.7
[2023-03-13] MEDS: D5LR 1,000 ML IV SCH (17:42)
[2023-03-13] MEDS: PIPERACILLIN/TAZO 2.25G/DEX-IS 50 ML IV SCH ×2 (19:30→21:21)
[2023-03-13 20:00] VITALS: BP_SYST 163; PULSE 64; RESP 16; TEMP 98.4; O2SAT 96
[2023-03-13] MEDS ORDERED: NON-FORMULARY MEDICATION (Methenamine Hippurate (Hiprex) 1 TAB) PO SCH (21:00)
[2023-03-13] MEDS ORDERED: D MANNOSE PO SCH (21:00)
[2023-03-13] MEDS: LOSARTAN POTASSIUM 50 MG TABLET (COZAAR) PO SCH (21:37)
[2023-03-13] MEDS: DOCUSATE SODIUM 100 MG CAPSULE PO SCH (21:37)
[2023-03-13] MEDS: SENNOSIDES 8.6 MG TABLET PO SCH (21:37)
[2023-03-13 23:11] VITALS: O2SAT 96
[2023-03-14] VITALS (10 sets, daily range): BP systolic 125–177; PULSE 60–104; RESP 16–18; TEMP 96.9–100; O2SAT 95–100
[2023-03-14] MEDS: PIPERACILLIN/TAZO 2.25G/DEX-IS 50 ML IV SCH ×4 (04:17→22:10)
[2023-03-14 04:18] LABS: BASOPHILS # (AUTO) 0.1 K/uL (0.0-0.2); BASOPHILS % (AUTO) 0.7 % (0.0-2.0); EOSINOPHILS # (AUTO) 0.1 K/uL (0.0-0.4); EOSINOPHILS % (AUTO) 1.5 % (0.0-4.0); HEMATOCRIT 30.7 % (36-48); HEMOGLOBIN 9.9 g/dL (12.0-16.0); LYMPHOCYTES # (AUTO) 2.3 K/uL (1.0-5.5); LYMPHOCYTES % (AUTO) 25.4 % (20.5-51.5); MEAN CORPUSCULAR HEMOGLOBIN 28 pg (27-31); MEAN CORPUSCULAR HGB CONC 32 % (32-36); MEAN CORPUSCULAR VOLUME 88 fL (79.0-98.0); MONOCYTES # (AUTO) 0.7 K/uL (0.0-1.0); MONOCYTES % (AUTO) 8.3 % (1.7-9.3); NEUTROPHILS # (AUTO) 5.8 K/uL (1.8-7.7); NEUTROPHILS % (AUTO) 64.1 % (40.0-70.0); PLATELET COUNT (AUTO) 320 K/uL (130-430); RED BLOOD CELL COUNT(AUTO) 3.48 MIL/uL (4.2-6.2)
[2023-03-14 04:53] LABS: ALANINE AMINOTRANSFERASE 12 U/L (12-78); ALBUMIN 2.1 g/dL (3.4-4.8); ANION GAP 7 (5-15); ASPARTATE AMINOTRANSFERASE 9 U/L (10-37); CALCIUM 8.5 mg/dL (8.4-11.0); CARBON DIOXIDE 26 mmol/L (23-29); CHLORIDE 105 mmol/L (98-107); CREATININE 0.41 mg/dL (0.55-1.30); FREE T4 (FREE THYROXINE) 1.4 ng/dL (0.6-1.6); GLUCOSE 118 mg/dL (74-106); PHOSPHORUS 3.2 mg/dL (2.7-4.5); POTASSIUM 3.4 mmol/L (3.5-5.1); SODIUM SERUM 138 mmol/L (136-145); THYROID STIMULATING HORMONE 0.26 uIu/mL (0.34-4.82); TOTAL BILIRUBIN 0.4 mg/dL (0.0-1.0); TOTAL PROTEIN, SERUM 5.5 g/dL (6.4-8.3); UREA NITROGEN, BLOOD 15 mg/dL (8-21)
[2023-03-14] MEDS: D5LR 1,000 ML IV SCH (06:40)
[2023-03-14] MEDS: LEVOTHYROXINE SODIUM 0.1 MG TABLET PO SCH (07:00)
[2023-03-14] MEDS ORDERED: NON-FORMULARY MEDICATION (Amino Acids/Protein Hydrolys (Pro-Stat Liquid) 30 ML) PO SCH (09:00)
[2023-03-14] MEDS: POLYETHYLENE GLYCOL 3350, 17 GM/ POWD.PACK PO SCH (09:00)
[2023-03-14] MEDS ORDERED: CYANOCOBALAMIN PO SCH (09:00)
[2023-03-14] MEDS ORDERED: NON-FORMULARY MEDICATION (Amlodipine Besylate 1 TAB) PO SCH (09:00)
[2023-03-14] MEDS: FERROUS SULFATE 325 MG TABLET.DR PO SCH (10:01)
[2023-03-14] MEDS: ARIPiprazole 5 MG TAB PO SCH (10:01)
[2023-03-14] MEDS: DOCUSATE SODIUM 100 MG CAPSULE PO SCH ×2 (10:01→22:11)
[2023-03-14] MEDS: amLODIPine BESYLATE 5 MG TABLET PO SCH (10:04)
[2023-03-14] MEDS: CHOLECALCIFEROL (VITAMIN D3) 2,000 UNIT TABLET PO SCH (10:05)
[2023-03-14] MEDS: PANTOPRAZOLE SODIUM 40 MG TAB PO SCH (10:05)
[2023-03-14] MEDS: SERTRALINE HCL 50 MG TABLET PO SCH (10:06)
[2023-03-14] MEDS: LOSARTAN POTASSIUM 50 MG TABLET (COZAAR) PO SCH ×2 (10:06→22:11)
[2023-03-14] MEDS: CYANOCOBALAMIN (VITAMIN B-12) 1,000 MCG TABLET PO SCH (10:07)
[2023-03-14] MEDS: BISACODYL 10 MG/SUPPOSITORY RC SCH (10:07)
[2023-03-14] MEDS: AZITHROMYCIN 500 MG in NS 250 ML IV SCH (16:48)
[2023-03-14] MEDS: SENNOSIDES 8.6 MG TABLET PO SCH (22:10)
[2023-03-15] MEDS: PIPERACILLIN/TAZO 2.25G/DEX-IS 50 ML IV SCH ×4 (03:00→21:36)
[2023-03-15 05:19] LABS: BASOPHILS # (AUTO) 0.1 K/uL (0.0-0.2); EOSINOPHILS # (AUTO) 0.2 K/uL (0.0-0.4); EOSINOPHILS % (AUTO) 1.7 % (0.0-4.0); HEMATOCRIT 31.1 % (36-48); HEMOGLOBIN 10.1 g/dL (12.0-16.0); LYMPHOCYTES # (AUTO) 2.6 K/uL (1.0-5.5); LYMPHOCYTES % (AUTO) 28.2 % (20.5-51.5); MEAN CORPUSCULAR HEMOGLOBIN 29 pg (27-31); MEAN CORPUSCULAR HGB CONC 33 % (32-36); MEAN CORPUSCULAR VOLUME 88 fL (79.0-98.0); MONOCYTES # (AUTO) 0.8 K/uL (0.0-1.0); MONOCYTES % (AUTO) 8.4 % (1.7-9.3); NEUTROPHILS # (AUTO) 5.5 K/uL (1.8-7.7); NEUTROPHILS % (AUTO) 60.7 % (40.0-70.0); PLATELET COUNT (AUTO) 345 K/uL (130-430); RED BLOOD CELL COUNT(AUTO) 3.54 MIL/uL (4.2-6.2); RED CELL DISTRIBUTION WIDTH 15.4 % (9.0-15.0); WHITE BLOOD COUNT (AUTO) 9.1 K/uL (4.8-10.8)
[2023-03-15 05:20] LABS: ANION GAP 9 (5-15); CALCIUM 8.7 mg/dL (8.4-11.0); CARBON DIOXIDE 26 mmol/L (23-29); CHLORIDE 101 mmol/L (98-107); CREATININE 0.39 mg/dL (0.55-1.30); GLUCOSE 112 mg/dL (74-106); POTASSIUM 3.3 mmol/L (3.5-5.1); SODIUM SERUM 136 mmol/L (136-145); UREA NITROGEN, BLOOD 11 mg/dL (8-21)
[2023-03-15] MEDS: LEVOTHYROXINE SODIUM 0.1 MG TABLET PO SCH (07:01)
[2023-03-15 08:00] VITALS: BP_SYST 156; PULSE 64; RESP 16; TEMP 98; O2SAT 97
[2023-03-15] MEDS: POLYETHYLENE GLYCOL 3350, 17 GM/ POWD.PACK PO SCH (09:00)
[2023-03-15] MEDS: ARIPiprazole 5 MG TAB PO SCH (09:52)
[2023-03-15] MEDS: DOCUSATE SODIUM 100 MG CAPSULE PO SCH ×2 (09:53→21:00)
[2023-03-15] MEDS: LOSARTAN POTASSIUM 50 MG TABLET (COZAAR) PO SCH ×2 (09:53→21:37)
[2023-03-15] MEDS: FERROUS SULFATE 325 MG TABLET.DR PO SCH (09:53)
[2023-03-15] MEDS: CYANOCOBALAMIN (VITAMIN B-12) 1,000 MCG TABLET PO SCH (09:55)
[2023-03-15] MEDS: amLODIPine BESYLATE 5 MG TABLET PO SCH (09:55)
[2023-03-15] MEDS: PANTOPRAZOLE SODIUM 40 MG TAB PO SCH (09:55)
[2023-03-15] MEDS: CHOLECALCIFEROL (VITAMIN D3) 2,000 UNIT TABLET PO SCH (09:55)
[2023-03-15] MEDS: SERTRALINE HCL 50 MG TABLET PO SCH (09:56)
[2023-03-15] MEDS: BISACODYL 10 MG/SUPPOSITORY RC SCH (09:56)
[2023-03-15 11:58] VITALS: BP_SYST 138; PULSE 58; RESP 16; TEMP 99.3; O2SAT 98
[2023-03-15] MEDS ORDERED: POTASSIUM CHLORIDE 20 MEQ/PKT PACKET PO ONE (12:00)
[2023-03-15] MEDS: AZITHROMYCIN 500 MG in NS 250 ML IV SCH (15:28)
[2023-03-15 16:00] VITALS: BP_SYST 130; PULSE 55; RESP 16; TEMP 98.9; O2SAT 98
[2023-03-15 21:00] VITALS: BP_SYST 152; PULSE 64; RESP 20; TEMP 99.5; O2SAT 98
[2023-03-15] MEDS: SENNOSIDES 8.6 MG TABLET PO SCH (21:00)
[2023-03-16 01:12] VITALS: BP_SYST 150; PULSE 63; RESP 16; TEMP 97.5; O2SAT 98
[2023-03-16] MEDS: PIPERACILLIN/TAZO 2.25G/DEX-IS 50 ML IV SCH ×2 (03:44→10:04)
[2023-03-16] MEDS ORDERED: LEVOTHYROXINE SODIUM 0.088 MG TABLET PO SCH (07:00)
[2023-03-16 08:00] VITALS: BP_SYST 159; PULSE 57; RESP 16; TEMP 97; O2SAT 99
[2023-03-16] MEDS: BISACODYL 10 MG/SUPPOSITORY RC SCH (09:00)
[2023-03-16] MEDS: POLYETHYLENE GLYCOL 3350, 17 GM/ POWD.PACK PO SCH (09:00)
[2023-03-16] MEDS ORDERED: POTASSIUM CHLORIDE 20 MEQ/PKT PACKET PO SCH (09:00)
[2023-03-16] MEDS: DOCUSATE SODIUM 100 MG CAPSULE PO SCH (09:00)
[2023-03-16] MEDS: CYANOCOBALAMIN (VITAMIN B-12) 1,000 MCG TABLET PO SCH (09:58)
[2023-03-16] MEDS: PANTOPRAZOLE SODIUM 40 MG TAB PO SCH (09:58)
[2023-03-16] MEDS: amLODIPine BESYLATE 5 MG TABLET PO SCH (10:00)
[2023-03-16] MEDS: LOSARTAN POTASSIUM 50 MG TABLET (COZAAR) PO SCH (10:00)
[2023-03-16] MEDS: SERTRALINE HCL 50 MG TABLET PO SCH (10:01)
[2023-03-16] MEDS: ARIPiprazole 5 MG TAB PO SCH (10:01)
[2023-03-16] MEDS: CHOLECALCIFEROL (VITAMIN D3) 2,000 UNIT TABLET PO SCH (10:01)
[2023-03-16] MEDS: FERROUS SULFATE 325 MG TABLET.DR PO SCH (10:01)
[2023-03-16] MEDS ORDERED: LEVO100T PO (10:15)
[2023-03-16 13:05] VITALS: BP_SYST 152; PULSE 86; RESP 18; TEMP 97.2; O2SAT 97
[2023-03-16 13:17] VITALS: BP_SYST 152; PULSE 66; RESP 18; TEMP 97.7; O2SAT 98
== END 2023-03-16 14:17 | DRG 640 ==
LOC: SED 10:50 → STU 12:42
PROVIDERS: ADMIT Internal Medicine; ATTEND Internal Medicine
DX: E86.0 Dehydration (principal); E43 Unspecified severe protein-calorie malnutrition; G93.41 Metabolic encephalopathy; J18.9 Pneumonia, unspecified organism; N39.0 Urinary tract infection, site not specified; F31.9 Bipolar disorder, unspecified; D64.9 Anemia, unspecified; G30.9 Alzheimer's disease, unspecified; Z20.822 Contact with and (suspected) exposure to COVID-19; I10 Essential (primary) hypertension; E87.6 Hypokalemia; F02.B0 Dementia in other diseases classified elsewhere, moderate, without behavioral disturbance, psychotic disturbance, mood disturbance, and anxiety; E03.9 Hypothyroidism, unspecified; Z79.82 Long term (current) use of aspirin; Z79.899 Other long term (current) drug therapy; Z87.440 Personal history of urinary (tract) infections; Z68.26 Body mass index [BMI] 26.0-26.9, adult
CPT/HCPCS: 36415; 70450-TC; 71045; 71250-TC; 76376; 80048; 80053; 81000; 81001; 81015; 82962; 83605; 83735; 84100; 84439; 84443; 84484; 85025; 85610-TC; 85730-TC; 87040; 87081; 87086; 93005; 93306; 96361; 96365; 96366; 96368; 97110-GP; 97116-GP; 97530-GP; 99285; G0378; J0456; J0696; J2543; J3480; J7050